=== PATIENT | male | born 1970 | race Caucasian/White ===

== ENCOUNTER → 2016-11-20 | Outpatient (REF) ==
--- NOTE | 2016-11-21 02:14 | REP ---
Clinical: Degenerative disease and pain . Technique: AP, lateral and open-mouth views. Findings: Alignment and lordosis is maintained. There is no evidence for acute fracture / compression injury or subluxation. Mild disc space narrowing at multiple levels suggest early degenerative change. Open mouth view demonstrates normal C1-C2 articulation and odontoid process. Impression: Mild multilevel disc space narrowing. Findings most pronounced at the C6-7, C5-6 levels. Signed by Johnnie Madrigal MD 11/21/2016 02:06 A
--- NOTE | 2016-11-21 02:15 | REP ---
Clinical: Pain and degenerative change. Technique: Internal rotation, external rotation, Y view of the right shoulder. Findings: Subtle cortical irregularity and early spurring at the acromioclavicular joint. Glenohumeral joint appears intact and normal. Subacromial space is normal. No periarticular calcifications. No soft tissue swelling. Impression: Mild degenerative change at the acromioclavicular joint. Signed by Johnnie Madrigal MD 11/21/2016 02:07 A
== END ==
LOC: M SMT 09:56
PROVIDERS: ATTEND Internal Medicine
DX: M54.5 Low back pain (principal)